=== PATIENT | male | born 1980 | race African-American/Black ===

== ENCOUNTER 2017-07-21 01:08 | Emergency (ER) | payer SELFPAY ==
[~2017-07-21] VITALS: Ht 177.8 cm; Wt 74.8 kg
[2017-07-21] MEDS ORDERED: NKM (01:11)
[2017-07-21 02:18] LABS: BASOPHILS % (AUTO) 1.1 % (0.0-2.0); EOSINOPHILS % (AUTO) 0.9 % (0.0-3.0); HEMOGLOBIN 15.4 G/DL (14.2-18.0); LYMPHOCYTES % (AUTO) 19.2 % (20.0-45.0); MEAN CORPUSCULAR VOLUME 93 FL (80-99); MONOCYTES % (AUTO) 10.1 % (1.0-10.0); NEUTROPHILS % (AUTO) 68.8 % (45.0-75.0); PLATELET COUNT 334 K/UL (150-450); RED BLOOD COUNT 4.82 M/UL (4.70-6.10); RED CELL DISTRIBUTION WIDTH 12.9 % (11.6-14.8); WHITE BLOOD COUNT 10.3 K/UL (4.8-10.8)
[2017-07-21 02:29] LABS: ANION GAP 8 mmol/L (5-15); BLOOD UREA NITROGEN 9 mg/dL (7-18); CALCIUM 9.7 MG/DL (8.5-10.1); CARBON DIOXIDE 29 MMOL/L (21-32); CHLORIDE 102 MMOL/L (98-107); CREATININE 1.1 MG/DL (0.55-1.30); POTASSIUM 3.7 MMOL/L (3.5-5.1); SODIUM 139 MMOL/L (136-145)
[2017-07-21 02:33] LABS: ALANINE AMINOTRANSFERASE 28 U/L (12-78); ALBUMIN 4.2 G/DL (3.4-5.0); ALKALINE PHOSPHATASE 63 U/L (46-116); ASPARTATE AMINO TRANSFERASE 21 U/L (15-37); BILIRUBIN,TOTAL 0.3 MG/DL (0.2-1.0)
[2017-07-21] MEDS ORDERED: ZYPREXA10 MG ORAL (03:12)
[2017-07-21] MEDS ORDERED: DEPAKOTE250 MG PO ×2 (03:12→12:17)
--- NOTE | 2017-07-21 03:27 | Emergency Room Report ---
History of Present Illness General Chief Complaint: Behavioral Complaint Source: Patient Present Illness HPI Patient presents with complaints of auditory hallucinations Patient has had recent hospital visit to [facility] He does report history of schizophrenia Denies any headache denies any chest pain denies any back or flank pain At this time is not actively homicidal or suicidal patient does have prescription for Depakote and Zyprexa with him Allergies: Coded Allergies: No Known Allergies (Unverified , 07/21/17) Patient History Past Medical History: see triage record Pertinent Family History: none Reviewed Nursing Documentation: PMH: Agreed, PSxH: Agreed Nursing Documentation-PMH Past Medical History: No Stated History Review of Systems All Other Systems: negative except mentioned in HPI Physical Exam Vital Signs Date Time Temp Pulse Resp B/P (MAP) Pulse Ox O2 Delivery O2 Flow Rate FiO2 07/21/17 01:10 97.9 78 16 130/83 99 Room Air 97.9 Sp02 EP Interpretation: reviewed, normal General Appearance: well appearing, no apparent distress Head: normocephalic, atraumatic Eyes: bilateral eye PERRL, bilateral eye EOMI ENT: hearing grossly normal, normal pharynx, TMs + canals normal, uvula midline Neck: full range of motion, supple, no meningismus, no bony tend Respiratory: lungs clear, normal breath sounds, no rhonchi, no respiratory distress, no retraction, no accessory muscle use Cardiovascular #1: normal peripheral pulses, regular rate, rhythm, no edema, no gallop, no JVD, no murmur Gastrointestinal: normal bowel sounds, non tender, soft, no mass, no organomegaly, non-distended, no guarding, no hernia, no pulsatile mass, no rebound Genitourinary: no CVA tenderness Musculoskeletal: normal inspection Neurologic: oriented x3, responsive, 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 tested, motor strength/ tone normal, sensory intact Psychiatric: other - Auditory hallucination Skin: normal color, no rash, warm/dry, palpation normal Lymphatic: normal inspection, no adenopathy Medical Decision Making Diagnostic Impression: Primary Impression: Auditory hallucination ER Course Patient has no specific regarding the auditory hallucination He does not have any suicidal thought or homicidal ideation Patient has had previous psychiatric history however Is on medication currently Given his presentation he is medically cleared And will have psychiatric evaluation in the morning Labs Test 07/21/17 01:50 07/21/17 02:00 Urine Opiates Screen Negative (NEGATIVE) Urine Barbiturates Screen Negative (NEGATIVE) Phencyclidine (PCP) Screen Negative (NEGATIVE) Urine Amphetamines Screen Negative (NEGATIVE) Urine Benzodiazepines Screen Negative (NEGATIVE) Urine Cocaine Screen Negative (NEGATIVE) Urine Marijuana (THC) Screen Positive (NEGATIVE) White Blood Count 10.3 K/UL (4.8-10.8) Red Blood Count 4.82 M/UL (4.70-6.10) Hemoglobin 15.4 G/DL (14.2-18.0) Hematocrit 45.0 % (42.0-52.0) Mean Corpuscular Volume 93 FL (80-99) Mean Corpuscular Hemoglobin 31.9 PG (27.0-31.0) Mean Corpuscular Hemoglobin Concent 34.1 G/DL (32.0-36.0) Red Cell Distribution Width 12.9 % (11.6-14.8) Platelet Count 334 K/UL (150-450) Mean Platelet Volume 6.3 FL (6.5-10.1) Neutrophils (%) (Auto) 68.8 % (45.0-75.0) Lymphocytes (%) (Auto) 19.2 % (20.0-45.0) Monocytes (%) (Auto) 10.1 % (1.0-10.0) Eosinophils (%) (Auto) 0.9 % (0.0-3.0) Basophils (%) (Auto) 1.1 % (0.0-2.0) Sodium Level 139 MMOL/L (136-145) Potassium Level 3.7 MMOL/L (3.5-5.1) Chloride Level 102 MMOL/L (98-107) Carbon Dioxide Level 29 MMOL/L (21-32) Anion Gap 8 mmol/L (5-15) Blood Urea Nitrogen 9 mg/dL (7-18) Creatinine 1.1 MG/DL (0.55-1.30) Estimat Glomerular Filtration Rate > 60 mL/min (>60) Glucose Level 82 MG/DL (74-106) Calcium Level 9.7 MG/DL (8.5-10.1) Total Bilirubin 0.3 MG/DL (0.2-1.0) Aspartate Amino Transf (AST/SGOT) 21 U/L (15-37) Alanine Aminotransferase (ALT/SGPT) 28 U/L (12-78) Alkaline Phosphatase 63 U/L (46-116) Total Protein 8.2 G/DL (6.4-8.2) Albumin 4.2 G/DL (3.4-5.0) Globulin 4.0 g/dL Albumin/Globulin Ratio 1.0 (1.0-2.7) Salicylates Level 2.3 ug/mL (2.8-20) Acetaminophen Level < 2 MCG/ML (10-30) Serum Alcohol < 3 mg/dL Last Vital Signs Date Time Temp Pulse Resp B/P (MAP) Pulse Ox O2 Delivery O2 Flow Rate FiO2 07/21/17 01:10 97.9 78 16 130/83 99 Room Air 97.9 Status: improved Reevaluation Impression Patient doing better, and will have psychiatric evaluation in the morning Condition: Improved Referrals: NOT CHOSEN JOZEF/,REFERRING (PCP) MIMI COLORADO D.O. Jul 21, 2017 03:27
[2017-07-21 03:30] VITALS: BP 125/81
[2017-07-21 06:12] VITALS: BP 129/84
[2017-07-21 09:37] VITALS: BP 125/78
[2017-07-21 12:32] VITALS: BP 125/78
--- NOTE | 2017-07-22 12:50 | Consultation ---
History of Present Illness General Date patient seen: Jul 21, 2017 Chief Complaint: Behavioral Complaint Present Illness HPI 36 yo male with unknown psych hx presents with complaints of auditory hallucinations. the Patient has had recent hospital visit to [facility]. the pt was given meds and food. During the eval the pt was not at imminent dts/dto. the pt using mj and is noncompliant with meds. the pt is not able to elaborate. Allergies: Coded Allergies: No Known Allergies (Unverified , 07/21/17) Medication History Scheduled Divalproex Sodium* (Depakote*), 500 MG PO Q12HR, (Reported) Divalproex Sodium* (Depakote*), 250 MG PO Q12HR No Known Medications* (NKM - No Known Medications*), 0 ., (Reported) Olanzapine* (Zyprexa*), 15 MG ORAL HS, (Reported) Patient History Limited by: medical condition History Provided By: Patient, Medical Record, PMD Healthcare decision maker Resuscitation status Advanced Directive on File Review of Systems Psychiatric: Reports: prior hx, depressed feelings Physical Exam General Appearance: WD/WN, no apparent distress, alert Neurologic: alert, oriented x 3, responsive, normal mood/affect Height (Feet): 5 Height (Inches): 10.00 Weight (Pounds): 165 Assessment/Plan Status: stable Assessment/Plan psychotic d/o cannabis dep -dc to outpt -the pt is not at imminent dts/dto Rosa Hampton M.D. Jul 22, 2017 12:50
== END 2017-07-21 12:33 | disposition home or self-care (01) ==
LOC: EDBD 01:08 → EMR 01:45
DX: F23 Brief psychotic disorder (principal); F12.20 Cannabis dependence, uncomplicated
CPT/HCPCS: 36415; 80053; 80307; 85025; 99283; G0480; 80329